=== PATIENT | female | born 1990 | race Caucasian/White ===

== ENCOUNTER 2018-04-10 14:36 | Emergency (ER) | payer OTHER ==
[2018-04-10 15:52] LABS: Bilirubin Negative (Negative); Blood, Urine Large (Negative); Clarity CLEAR (Clear); Glucose, Urine (Dipstick) Negative (Negative); Leukocyte Negative (Negative); Nitrite Negative (Negative); Protein, Urine (Dipstick) Negative (Neg-Trace); Specific Gravity, Urine 1.007 (1.002-1.036); Urobilinogen 0.2 mg/dL (0.2-1.0)
[2018-04-10 15:54] LABS: Bacteria/HPF None Seen HPF (None Seen); Hyaline Casts/LPF 0-3 HYALINE CAST LPF (0-3 Hyaline); Pathc Cast-AUWi Flag 0.29 (0-2.49); Squamous Epithelial 0-3 HPF (0-3); WBC/HPF 0-3 HPF (0-3)
[2018-04-10 16:00] LABS: #Basophils 0.1 thou/uL (0.0-0.2); #Eosinphils 0.6 thou/uL (0.0-0.7); #Lymphocytes 2.7 thou/uL (1.20-3.40); #Monocytes 0.5 thou/uL (0.11-0.59); #Neutrophils 6.1 thou/uL (1.40-6.50); %Basophils 0.7 % (0.0-1.0); %Eosinophils 5.8 % (0.0-10.0); %Lymphocytes 26.9 % (21.0-51.0); %Monocytes 5.1 % (0.0-10.0); %Neutrophils 61.5 % (42.0-75.0); Hemoglobin 14.7 g/dL (12.0-16.0); Mean Corpuscular HGB CONC 31.8 g/dL (32.0-36.0); Mean Corpuscular Volume 88.1 fL (78.0-98.0); Mean Platelet Volume 6.9 fL (7.4-10.4); Platelet Count 319 thou/uL (130-400); RBC Distribution Width 11.9 % (11.5-14.5); Red Blood Cell (RBC) Count 5.24 mill/uL (4.20-5.40); White Blood Cell (WBC) Count 9.9 thou/uL (4.8-10.8)
--- NOTE | 2018-04-10 18:23 | ULT ---
TRANSABDOMINAL AND TRANSVAGINAL PELVIC ULTRASOUND 04/10/18 INDICATION: History of pelvic pain. Patient took a home test and started to have vaginal bleeding. TECHNIQUE: Albrecht scale, color doppler with spectral doppler images were obtained in both the transabdominal and t ransvaginal approach. FINDINGS: The uterus measures 7.4 x 3.9 x 5 cm. Endometrial stripe measures 1.1 cm. The right ovary measures 3. 3 x 2.1 x 1.8 cm. The left ovary measures 3.4 x 2.5 x 2.5 cm. There is normal flow to both ovaries. S mall follicle is seen within both ovaries. No free fluid is evident. Small Nabothian cysts seen with in the posterior cervix. IMPRESSION: 1. No acute abnormality. 2. Nabothian cysts. 3. No intrauterine gestation demonstrated. Findings may reflect missed , early or ectopic. Recommend correlation with the patient's serum beta HCG level. Continued clinical and so nographic followup is recommended. POS: [facility]
== END 2018-04-10 17:33 | disposition home or self-care (01) ==
LOC: ERS 14:36
DX: O20.0 Threatened abortion (principal); Z3A.01 Less than 8 weeks gestation of pregnancy
CPT/HCPCS: 36415; 76856; 81003; 81015; 84702; 85025; 86900; 86901